=== PATIENT | male | born 1950 | race Caucasian/White ===

== ENCOUNTER 2024-11-10 18:55 | Emergency (ER) | payer OTHER, MEDICARE ==
[~2024-11-10] VITALS: Ht 172.7 cm; Wt 100.0 kg
[2024-11-10] MEDS: ibuprofen 200mg tablet PO ONE (21:34)
[2024-11-10] MEDS ORDERED: CYCL-1 PO (22:17)
[2024-11-10] MEDS: cyclobenzaprine 10mg tablet PO ONE (22:20)
[2024-11-10] MEDS: HYDROcodone/acetaminophen 5mg/325mg tablet PO ONE (22:20)
[2024-11-10 22:23] VITALS: BP 112/64; PULSE 72; RESP 16; TEMP 98.2; O2SAT 99
== END 2024-11-10 22:24 | disposition home or self-care (01) ==
LOC: ER 18:56
DX: M62.838 Other muscle spasm (principal); M54.50 Low back pain, unspecified; F17.200 Nicotine dependence, unspecified, uncomplicated; E11.9 Type 2 diabetes mellitus without complications; I10 Essential (primary) hypertension; Z88.0 Allergy status to penicillin; W19.XXXA Unspecified fall, initial encounter; Y93.89 Activity, other specified; Y92.89 Other specified places as the place of occurrence of the external cause; Y99.8 Other external cause status
CPT/HCPCS: 72131; 99284